=== PATIENT | male | born 1980 | race Hispanic/Latino ===

== ENCOUNTER → 2017-08-13 | Day surgery (SDC) | payer BC ==
[~2017-08-13] MED LIST: ANTIBIOTIC PO; DEXAMETHASONE SOD PHOS INJ 4 MG/ML VIAL ONE; FENTANYL CITRATE/PF 100MCG/2 ML INJ ONE; GELATIN SPONGE SZ 100 ONE; KETOROLAC TROMETHAMINE 30 MG/ML VIAL ONE; LIDOCAINE HCL 2% LOCAL INJ 5 ML SDV VIAL INJ ONE; LIDOCAINE JELLY 2% 10ML URO-JET ONE; ONDANSETRON HCL INJ 2 MG/ML VIAL ONE; PROPOFOL IV EMULSION 10 MG/ML 20 ML VIAL ONE; SEVOFLURANE INHAL SOLN 250 ML PEN BTL ONE
--- OUTSIDE RECORDS SUMMARY | 2017-08-13 13:49 | XMS REPORT | Clinical Summary ---
Author Author [facility] Address Unknown Phone Unavailable Care Team Providers Care Radar Scientist Name Role Phone Asked, Pcp PCP Unavailable Allergies Not on File Current Medications No known medications Active Problems No known active problems Encounters Date Type Specialty Care Team Description 06/10/2017 Office Visit General Surgery Odalys Whitlock Anal fistula (Primary Dx) FELIX Suárez Eric Mitchell, MD after 08/12/2016 Social History Tobacco Use Types Packs/Day Years Used Date Never Assessed Sex Assigned at Date Recorded Not on file Last Filed Vital Signs Not on file Plan of Treatment Health Maintenance Due Date Last Done Comments INFLUENZA VACCINE 01/19/2017 Results Not on fileafter 08/12/2016
--- OUTSIDE RECORDS SUMMARY | 2017-08-13 13:49 | XMS REPORT ---
Author Author [facility] Address Unknown Phone Unavailable Care Team Providers Care Alumni Relations Coordinator Name Role Phone LAMINE FARIAS Unavailable Unavailable Problems This patient has no known problems. Allergies, Adverse Reactions, Alerts This patient has no known allergies or adverse reactions. Medications This patient has no known medications. Results Test Description Test Time Test Comments Text Results Atomic Results Result Comments CT ABDOMEN/PELVIS W [place] [address] Patient Name: MYKE MASON MR #: [id number] : 1980 Age/Sex: 37/M Req # : [id number] Adm Physician: LAMINE FARIAS MD Ordered by: VINICIO MALONE MD Report #: [id number] Location: MED/SURG Room/Bed: [facility] _ Procedure: [id number] CT/CT ABDOMEN/PELVIS W Exam Date: 07/13/17 Exam Time: 1856 REPORT STATUS: Signed EXAM: CT Abdomen and Pelvis WITH contrast INDICATION: Peroneal abscess. Anal/rectal pain. Possible fistula. COMPARISON: None. TECHNIQUE: Abdomen and pelvis were scanned utilizing a multidetector helical scanner from the lung base to the pubic symphysis after administration of IV contrast. Coronal and sagittal reformations were obtained. Routine protocol was performed. Scan was performed when during portal venous phase. IV CONTRAST: 100 mL of Isovue-370 ORAL CONTRAST: Gastrografin and water RADIATION DOSE: Total DLP: 807.78 mGy*cm Estimated effective dose : (DLP x 0.015 x size factor) mSv COMPLICATIONS: None FINDINGS: LINES and TUBES: None. LOWER THORAX: Unremarkable HEPATOBILIARY: There are several too small to characterize hypodensities in the liver most likely due to small cysts. No biliary ductal dilation. GALLBLADDER: No radio-opaque stones or sludge. No wall thickening. SPLEEN : No splenomegaly. PANCREAS: No focal masses or ductal dilatation. ADRENALS: No adrenal nodules KIDNEYS/URETERS: Kidneys enhance symmetrically. No hydronephrosis. No cystic or solid mass lesions. No stones. GI TRACT: No abnormal distention, wall thickening, or evidence of bowel obstruction. Appendix is normal. PELVIC ORGANS/BLADDER: Unremarkable. LYMPH NODES: No lymphadenopathy. VESSELS: Unremarkable. PERITONEUM / RETROPERITONEUM: No free air or fluid. BONES: Unremarkable. SOFT TISSUES: Right posterior buttocks cellulitis with sinus tract and abscess in the subcutaneous fat best seen on axial image 101. The abscess measures approximately 2.5 cm in maximum dimension. The overlying skin is thickened and edematous. There is what appears to be a fistulous track extending to the posterior right side of the rectum. This is best seen on axial image 93 through 99. IMPRESSION: Right posterior buttocks cellulitis with sinus tract and abscess in the subcutaneous fat. There is what appears to be a fistulous track extending to the posterior right side of the rectum. Signed by: Dr. Yefri Seay M.D. on 07/13/2017 7:31 PM Dictated By: YEFRI SEAY MD, MD 30 Transcribed By: TAMY on 07/13/171930 COPY TO: VINICIO MALONE MD
--- NOTE | 2017-08-13 17:15 | Operative Report ---
DATE OF PROCEDURE: August 13, 2017 PREOPERATIVE DIAGNOSIS: Complex excess sphincteric anorectal fistula. POSTOPERATIVE DIAGNOSIS: Complex excess sphincteric anorectal fistula. OPERATION PERFORMED: Examination under anesthesia and exchange of setons. ANESTHESIA: General. COMPLICATIONS: None. ESTIMATED BLOOD LOSS: Minimal. DESCRIPTION OF PROCEDURE: With the patient lying in bed in the lithotomy position under good general anesthesia, the perineum was prepped with Betadine solution and draped in the usual manner. Examination at this point revealed that the external component of the fistula had closed significantly already. The seton was in good position and a lot of the internal and mucosal area had done a significant amount of healing. We then at this point exchanged the [place] that was being used as a seton for a #2 nylon seton, which was tied to itself and cut with some very long extensions. The whole area was inspected for bleeding and there was none. A Gelfoam pack impregnated with Xylocaine was placed. The sponge, lap and needle count was correct. A dressing was applied. The patient tolerated the procedure well and returned to the recovery room in stable condition. Job#: [id number]
== END | disposition home or self-care (01) ==
LOC: OR 13:46
PROVIDERS: ATTEND Surgery
DX: K60.5 Anorectal fistula (principal)
CPT/HCPCS: J1100; J1885; J2001; J2405